=== PATIENT | female | born 1985 | race Caucasian/White ===

== ENCOUNTER 2020-04-25 09:57 | Outpatient (REF) | payer SELFPAY ==
[2020-04-25 11:45] LABS: Lithium 0.79 mmol/L (0.60-1.20)
[2020-04-25 11:47] LABS: Calcium 9.9 mg/dL (8.4-10.2); Cholesterol 170 mg/dL; Estimated Glomerular Filt Rate > 60; Glucose Fasting 86 mg/dL (60-99); HDL Cholesterol 47 mg/dL; LDL Cholesterol Calculated 106 mg/dl; Triglycerides 87 mg/dL
[2020-04-25 11:54] LABS: Thyroid Stimulating Hormone 0.77 uIU/mL (0.32-4.0)
[2020-04-29 10:56] LABS: Lamotrigine Lamictal 3.6 mcg/mL (4.0-18.0)
== END 2020-04-25 09:58 | disposition home or self-care (01) ==
LOC: HO.LAB 09:57
PROVIDERS: Visit Provider Psychiatry & Neurology Psychiatry
DX: F31.73 Bipolar disorder, in partial remission, most recent episode manic (principal)
CPT/HCPCS: 80061; 80175; 80178; 82310; 82565; 82947; 84443

== ENCOUNTER 2022-02-26 10:18 | Emergency (ER) | payer OTHER, SELFPAY ==
--- NOTE | 2022-02-26 10:35 | ECG_ITS ---
Test Reason : chest pain Blood Pressure : / mmHG Vent. Rate : 080 BPM Atrial Rate : 080 BPM P-R Int : 140 ms QRS Dur : 080 ms QT Int : 382 ms P-R-T Axes : 074 003 078 degrees QTc Int : 440 ms Normal sinus rhythm Low voltage QRS Borderline ECG When compared with ECG of 14-MAY-2018 22:44, No significant change was found Referred By: Generic ED Physician Electronically Signed By:ZOLTAN ABURTO
[2022-02-26 10:46] VITALS: BP 138/92; PULSE 85; RESP 16; TEMP 36.8; O2SAT 98; BMI 28.3
[2022-02-26 10:49] LABS: MANUAL DIFF FLAG NO
[2022-02-26 10:51] LABS: Basophils Percent Auto 0.4 % (0-2); Eosinophils Absolute Auto 0.1 X10*3/uL (0.0-0.4); Eosinophils Percent Auto 1.2 % (0-4); Hematocrit 42.5 % (37.0-47.0); Hemoglobin 13.8 g/dl (12.0-16.0); Imm Gran Abs Auto 0.03 X10*3/uL (0.00-0.03); Imm Gran Pct Auto 0.4 % (0.0-0.4); Lymphocytes Absolute Auto 1.6 X10*3/uL (1.2-4.9); Lymphocytes Percent Auto 23.8 % (20-40); Mean Corpuscular HGB Conc 32.5 g/dl (31.0-35.0); Mean Corpuscular Hemoglobin 30.3 pg (27.0-33.0); Mean Corpuscular Volume 93.2 fL (80.0-98.0); Mean Platelet Volume 9.2 fL (9.4-12.3); Monocytes Absolute Auto 0.7 X10*3/uL (0.1-1.2); Monocytes Percent Auto 9.9 % (2-11); Neutrophils Absolute Auto 4.4 x10*3/uL (2.0-8.3); Neutrophils Percent Auto 64.3 % (45-73); Platelet Count 327 X10*3/uL (160-400); Red Blood Count 4.56 X10*6/uL (4.20-5.50); White Blood Count 6.8 X10*3/uL (4.8-10.8)
[2022-02-26 11:05] LABS: Anion Gap 13 (12-20); Blood Urea Nitrogen 10 mg/dL (9-16); Calcium 9.9 mg/dL (8.4-10.2); Carbon Dioxide 23 mmol/L (22-29); Chloride 105 mmol/L (96-108); Estimated Glomerular Filt Rate > 60; Glucose Random 100 mg/dL (60-115); Potassium 4.4 mmol/L (3.3-5.1); Sodium 137 mmol/L (135-145)
[2022-02-26 11:13] LABS: Troponin-I High Sensitivity < 3.5 ng/L (<3.5-17.0)
== END 2022-02-26 15:03 | disposition left against medical advice (07) ==
PROVIDERS: Emergency Provider Emergency Medicine
DX: R07.89 Other chest pain (principal); R42 Dizziness and giddiness; Z79.899 Other long term (current) drug therapy
CPT/HCPCS: 36415; 80048; 84484; 85025; 93005; 99283